=== PATIENT | female | born 1990 | race African-American/Black ===

== ENCOUNTER 2018-11-14 20:59 | Emergency (ER) | payer MEDICAID ==
[~2018-11-14] VITALS: Ht 157.5 cm; Wt 89.8 kg
[2018-11-14 21:01] VITALS: BP 127/80
--- NOTE | 2018-11-14 21:07 | NUR ---
PT AMBULATED TO ER BED 1
--- NOTE | 2018-11-14 21:15 | NUR ---
28 YO F BIB SELF AND FIANCE PRESENTS TO ED C/O 02/14 SORE THROAT, ENRIQUEZ, AND BODY ACHES X 1 DAY. PT ALSO STATES SHE HAD A FEVER OF 103 YESTERDAY MORNING. PT IS AFEBRILE AT THIS TIME. DENIES RASH, SOB, NVD AT THIS TIME. -- PT APPEARS UNCOMFORTABLE. IS ALERT, CALM, COOPERATIVE. BEHAVIOR APPROPRIATE. -- SKIN PINK, WARM, DRY. BREATHING EVEN, UNLABORED. VSS. PMH-- HYPOTHYROID RX-- LEVOTHYROXINE 125 MCG DAILY
--- NOTE | 2018-11-14 21:50 | NUR ---
DR. PIÑA EVALUATING AT BEDSIDE.
[2018-11-14 22:29] VITALS: BP 127/80
--- NOTE | 2018-11-14 22:29 | NUR ---
Patient discharged with v/s stable. Written and verbal after care instructions given and explained by Dr. Lowe. Patient alert, oriented and verbalized understanding of instructions. Ambulatory with steady gait. All questions addressed prior to discharge. ID band removed. Patient advised to follow up with PMD. Rx of Augmentin given. Patient educated on indication of medication including possible reaction and side effects. Opportunity to ask questions provided and answered.
== END 2018-11-14 22:29 | disposition home or self-care (01) ==
LOC: MED 20:59
DX: J02.9 Acute pharyngitis, unspecified (principal); R05 Cough; R09.89 Other specified symptoms and signs involving the circulatory and respiratory systems
CPT/HCPCS: 99283

== ENCOUNTER 2020-02-23 13:56 | Emergency (ER) | payer MEDICAID ==
[~2020-02-23] VITALS: Ht 157.5 cm; Wt 86.2 kg
[2020-02-23 14:04] VITALS: BP 118/77
--- NOTE | 2020-02-23 14:09 | NUR ---
PT AMBULATED TO ER BED 02
--- NOTE | 2020-02-23 14:15 | NUR ---
C/O RIGHT EAR PAIN > 2WKS EXACERBATED PAIN AFTER GOING SWIMMING .PT AOX4 , AFIBRILE , AMBULATORY WITH STEADY GAIT , DENIES COUGH AND COLDS , NO POST AND PRE AURICULAR TENDERNESS , NOR DISCHARGE . HX--GERD, HYPOTHYROID RX---PROTONIX, LEVOTHYROXINE
--- NOTE | 2020-02-23 15:10 | NUR ---
nitish lepe at bedside evaluating pt.
[2020-02-23 15:20] VITALS: BP 118/77
--- NOTE | 2020-02-23 15:20 | NUR ---
Patient discharged with v/s stable. Written and verbal after care instructions given and explained regarding otitis externa. Patient alert, oriented and verbalized understanding of instructions. Ambulatory with steady gait. All questions addressed prior to discharge. ID band removed. Patient advised to follow up with PMD. Rx of ibuprofen and ciprodex ear drops given. Patient educated on indication of medication including possible reaction and side effects. Opportunity to ask questions provided and answered.
== END 2020-02-23 15:20 | disposition home or self-care (01) ==
LOC: MED 13:56
DX: H60.91 Unspecified otitis externa, right ear (principal); K21.9 Gastro-esophageal reflux disease without esophagitis; E03.9 Hypothyroidism, unspecified
CPT/HCPCS: 99283

== ENCOUNTER 2022-09-11 01:05 | Emergency (ER) | payer MEDICAID ==
[~2022-09-11] VITALS: Ht 157.5 cm; Wt 99.8 kg
[2022-09-11 01:17] VITALS: BP 133/73
--- NOTE | 2022-09-11 01:22 | NUR ---
PT TO LOBBY
--- NOTE | 2022-09-11 01:24 | NUR ---
SWABS COLLECTED AND GIVEN TO
--- NOTE | 2022-09-11 02:38 | NUR ---
PT TO BED 01.
--- NOTE | 2022-09-11 02:50 | NUR ---
pt is here beacuse she is positive of COVID. pt is tachycardic. she is alert oriented x 4. room air and ambulatory
[2022-09-11] MEDS ORDERED: KETOROLAC 30 MG/ML VIAL IM ONE (02:55)
[2022-09-11] MEDS ORDERED: ACETAMIN/CODEINE 120/12MG-5ML 5 ML UDC PO ONE (02:55)
[2022-09-11] MEDS ORDERED: ROBAC PO (03:03)
[2022-09-11] MEDS ORDERED: NIRM1TAB PO (03:03)
[2022-09-11 03:41] VITALS: BP 133/73
--- NOTE | 2022-09-11 03:43 | NUR ---
Patient discharged with v/s stable. Written and verbal after care instructions given and explained. Patient verbalized understanding. Ambulatory with steady gait. All questions addressed prior to discharge. Advised to follow up with PMD.Pt left his belongings.
== END 2022-09-11 03:41 | disposition home or self-care (01) ==
LOC: MED 01:05
DX: U07.1 COVID-19 (principal); K21.9 Gastro-esophageal reflux disease without esophagitis; E03.9 Hypothyroidism, unspecified; Z79.899 Other long term (current) drug therapy
CPT/HCPCS: 71045; 87426; 96372; 99284; J1885

== ENCOUNTER 2023-12-31 03:49 | Emergency (ER) | payer MEDICAID ==
[~2023-12-31] VITALS: Ht 157.5 cm; Wt 97.5 kg
[~2023-12-31 03:49] MED LIST: NIRM1TAB PO; ROBAC PO
[2023-12-31 03:55] VITALS: BP 135/87; PULSE 85; RESP 16; TEMP 98; O2SAT 98
[2023-12-31] MEDS ORDERED: AMOX-1230 PO (05:11)
[2023-12-31 05:14] VITALS: BP 135/87; PULSE 85; RESP 16; TEMP 98; O2SAT 98
== END 2023-12-31 05:14 | disposition home or self-care (01) ==
LOC: MED 03:49
DX: S61.251A Open bite of left index finger without damage to nail, initial encounter (principal); S61.250A Open bite of right index finger without damage to nail, initial encounter; R03.0 Elevated blood-pressure reading, without diagnosis of hypertension; K21.9 Gastro-esophageal reflux disease without esophagitis; E03.9 Hypothyroidism, unspecified; Z90.49 Acquired absence of other specified parts of digestive tract; Z98.890 Other specified postprocedural states; Z79.899 Other long term (current) drug therapy; W55.01XA Bitten by cat, initial encounter; Y93.89 Activity, other specified; Y92.89 Other specified places as the place of occurrence of the external cause; Y99.8 Other external cause status
CPT/HCPCS: 90471; 90715; 99283